=== PATIENT | male | born 1985 | race Caucasian/White ===

== ENCOUNTER 2020-05-29 10:31 | Emergency (ER) | payer BC ==
--- NOTE | 2020-05-29 11:36 | EDM.PDOC ---
ED HPI GENERAL MEDICAL PROBLEM - General Chief Complaint: Laceration Stated Complaint: left palm laceration Time Seen by Provider: 05/29/20 11:06 Source of Information: Reports: Patient History Limitations: Reports: No Limitations - History of Present Illness INITIAL COMMENTS - FREE TEXT/NARRATIVE: Patient cut self across left palm with utility knife while trying to trim plasti c while installing egress windows at home. Has numbness around palm/thumb/2nd and 3rd fingers. No loss of function. Last tetanus updated 7 years ago. No other injuries reported. left palm Pain Score (Numeric/FACES): 4 - Related Data Allergies Allergy/AdvReac Type Severity Reaction Status Date / Time No Known Allergies Allergy Verified 05/29/20 10:32 Home Meds: Home Meds . [No Known Home Meds] 05/29/20 [History] Past Medical History - Past Health History Medical/Surgical History: Denies Medical/Surgical History Social & Family History - Tobacco Use Smoking Status *Q: Current Every Day Smoker Years of Tobacco use: 20 Packs/Tins Daily: 0.5 - Caffeine Use Caffeine Use: Reports: None - Recreational Drug Use Recreational Drug Use: No ED ROS GENERAL - Review of Systems Review Of Systems: See Below Constitutional: Reports: No Symptoms HEENT: Reports: No Symptoms Respiratory: Reports: No Symptoms Cardiovascular: Reports: No Symptoms Endocrine: Reports: No Symptoms GI/Abdominal: Reports: No Symptoms : Reports: No Symptoms Musculoskeletal: Reports: Hand Pain Skin: Reports: Wound Neurological: Reports: Other (feels like left hand is "falling asleep" around thumb/palm/index/middle finger) Psychiatric: Reports: No Symptoms Hematologic/Lymphatic: Reports: No Symptoms ED EXAM, SKIN/RASH Exam: See Below Exam Limited By: No Limitations General Appearance: Alert, WD/WN, No Apparent Distress Eye Exam: Bilateral Eye: EOMI, PERRL Head: Atraumatic, Normocephalic Neck: Supple Respiratory/Chest: No Respiratory Distress Extremities: Other (deep laceration across left palm, deepest medially near base of thumb, extending almost to other side of palm. Patient complains of numbness with light touch around palm/fingers 1-4 of injured hand. No active bleeding. Tendon function appears intact. Good cap refill fingers. ) Neurological: Alert, Oriented, Normal Cognition, Normal Gait Psychiatric: Normal Affect, Normal Mood Skin: Warm, Other (see above) Course - Vital Signs Last Recorded V/S: Last Vital Signs Temp 36.4 C 05/29/20 10:34 Pulse 47 L 05/29/20 10:58 Resp 16 05/29/20 10:34 BP 111/57 L 05/29/20 10:34 Pulse Ox 96 05/29/20 10:34 - Orders/Labs/Meds Meds: Medications Discontinued Medications Generic Name Dose Route Start Last Admin Trade Name Marisol PRN Reason Stop Dose Admin Lidocaine HCl 5 ml 05/29/20 11:06 05/29/20 11:11 Xylocaine-Mpf 1% INJECT 05/29/20 11:07 5 ml ONETIME ONE Administration - Re-Assessments/Exams Free Text/Narrative Re-Assessment/Exam: 05/29/20 11:42 Initial plan was to inject local anesthesia and perform repair here at [facility]. However, given depth of laceration along with numbness it was determined that it was in best interest of patient to be evaluated by hand specialist in [place]. from [facility] contacted and he accepted patient for transfer and evaluation. Patient insisted on driving himself. Pain manageable at 4/10. Nonstick dressing applied prior to patient leaving ER. Patient advised to not drink/eat at all prior to being evaluated at [facility]. Departure - Departure Time of Disposition: 11:34 Disposition: DC/Tfer to Acute Hospital 02 Condition: Good Clinical Impression: Laceration of left palm Qualifiers: Encounter type: initial encounter Qualified Code(s): S61.412A - Laceration without foreign body of left hand, initial encounter - Discharge Information *PRESCRIPTION DRUG MONITORING PROGRAM REVIEWED*: Not Applicable *COPY OF PRESCRIPTION DRUG MONITORING REPORT IN PATIENT ED: Not Applicable Forms: ED Department Discharge Additional Instructions: Drive directly to ER at [facility] on [address] Do not stop to eat/drink AT ALL on your way there. You can eat/drink AFTER the hand is fixed. Tell ER staff that , the hand surgeon, is expecting you. They will get you to . Sepsis Event Note (ED) - Evaluation Sepsis Screening Result: No Definite Risk - Focused Exam Vital Signs: Vital Signs Temp Pulse Resp BP Pulse Ox 05/29/20 10:58 47 L 05/29/20 10:34 36.4 C 45 L 16 111/57 L 96
== END 2020-05-29 11:40 ==
LOC: LL.ED 10:31
DX: S61.412A Laceration without foreign body of left hand, initial encounter (principal); F17.210 Nicotine dependence, cigarettes, uncomplicated; W26.0XXA Contact with knife, initial encounter; Y92.009 Unspecified place in unspecified non-institutional (private) residence as the place of occurrence of the external cause
CPT/HCPCS: 99284; J2001